=== PATIENT | male | born 1955 | race Caucasian/White ===

== ENCOUNTER → 2017-05-15 | Outpatient (CLI) | payer OTHER ==
[~2017-05-15] MED LIST: AMLODIPINE BESYL5 MG PO; AMLODIPINE-BENA1 CAP PO; ANUSOL-HC25 MG/SUPP PR; ASPIRIN PO; AUGMENTIN PO; BLOOD PRESSURE; BYSTOLIC PO; CERTAGEN PO; COATED ASPIRIN325 M1 PO; DARVOCET-N 1001 TAB PO; EFFIENT10 MG PO; ISOSORBIDE DINI30 MG PO; LIPITOR PO; LOPRESSOR PO; LOTENSIN20 MG PO; METOPROLOL TAR25 MG PO; MUCINEX DM1 TAB.SR . PO; NASONEX17 GM; NEXIUM; NEXIUM PO; NITROSTAT0.4 MG SL; PRILOSEC PO; PROCTOSOL-HC28.35 GM PR; ROBITUSSIN-DM120 ML PO; ZOCOR20 MG PO
--- NOTE | ~2017-05-15 | US77 ---
[facility] A Service of [facility] RADIOLOGY TEXT RESULTS PATIENT: ZANA LEAL LOCATION: [facility] : 51 UNIT #: [id number] AGE: [address]: Harshal Marrero MD SEX: M ORDER DR: [id number] [facility]. [place], [place] [address] [id number] O MR#: [id number] Acc #: [id number] NAME: ZANA LEAL : 1955 SEX: M STUDY DATE/TIME: 05/15/2017 12:55 UNIT: [facility] ROOM: STUDY DESCRIPTION: US Kidney Bilateral Complete Attending Physician: Harshal Marrero M.D. Referring Physician: Harshal Marrero M.D. Ordering Physician: Harshal Marrero M.D. Primary Care Physician: Carmen De Souza M.D. MEDICAL IMAGING REPORT This report is preliminary unless electronic signature is present EXAM Renal ultrasound. INDICATIONS Chronic kidney disease. TECHNIQUE Grossman-scale and color Doppler sonographic images were obtained through the kidneys and bladder. FINDINGS Right kidney appears unremarkable. No solid or cystic renal masses are seen and there is no hydronephrosis. Incidentally, I do think the liver appears echogenic which may reflect some underlying hepatic steatosis. There is no hydronephrosis. Left kidney also appears unremarkable with no solid or cystic renal masses and no hydronephrosis. Urinary bladder I think appears normal. IMPRESSION 1. No abnormality of the kidneys or bladder identified. 2. Suspected diffuse hepatic steatosis. Dictated by... Sadaf Forbes M.D. THIS IS AN ELECTRONICALLY VERIFIED REPORT Sadaf Forbes M.D. at 05/17/2017 8:34 AM CRUZITO/raymon TD: 05/16/2017 11:40 JOB #: [id number] [facility] A Service of [facility] RADIOLOGY TEXT RESULTS PATIENT: ZANA LEAL LOCATION: [facility] ACC #: [id number] : 51 UNIT #: [id number] AGE: [address]: Harshal Marrero MD SEX: M ORDER DR: MEDICAL IMAGING REPORT Page 1 of 1 COPY
== END | disposition home or self-care (01) ==
LOC: CGUS 12:26
DX: N18.3 Chronic kidney disease, stage 3 (moderate) (principal)
CPT/HCPCS: 76770